=== PATIENT | female | born 1990 | race Two or more races ===

== ENCOUNTER 2024-03-28 08:32 | Emergency (ER) | payer MEDICAID, SELFPAY ==
[2024-03-28 08:32] VITALS: BMI 34.9
--- NOTE | 2024-03-28 08:36 | XR_ITS ---
Examination: Complete OB ultrasound, less than 14 weeks, transabdominal Date and time of exam: March 28, 2024 0921 hours INDICATIONS: Vaginal bleeding beginning 3 days ago Technique: Obstetrical ultrasound images less than 14 weeks performed via transabdominal imaging Findings: Uterus 12.5 x 7.5 x 7.2 cm Intrauterine gestational sac 2.2 cm corresponds to 7 weeks 1 day gestational age No pole No cardiac activity Right ovary 3.5 x 1.8 x 2.3 cm arterial flow Left ovary 2.6 x 0.9 x 2.5 cm arterial flow IMPRESSION: Empty intrauterine gestational sac corresponding to 7 weeks 1 day gestational age No pole, no cardiac activity Recommend short-term follow-up transvaginal pelvic sonography to confirm embryonic demise
[2024-03-28 08:41] VITALS: BP 115/77; PULSE 91; RESP 18; TEMP 36.8; O2SAT 98
[2024-03-28 09:06] LABS: Basophils % (Auto) 1 % (0-2.5); Eosinophils # (Auto) 0.2 Thou/mm3 (0.0-0.5); Eosinophils % (Auto) 3 % (0-10); Hematocrit 38.4 % (36.0-46.0); Hemoglobin 12.6 g/dL (12.0-16.0); Immature Granulocytes % (Auto) 0 % (0-0); Immature Granulocytes Auto 0.01 Thou/mm3 (0.00-0.00); Lymphocytes % (Auto) 31 % (10-50); Mean Corpuscular HGB Conc 32.8 g/dl (31.0-37.0); Mean Corpuscular Hemoglobin 28.3 pg (25.0-35.0); Mean Corpuscular Volume 86 fL (80-100); Monocytes # (Auto) 0.4 Thou/mm3 (0.0-0.8); Monocytes % (Auto) 7 % (0-12); Neutrophils # (Auto) 3.9 Thou/mm3 (1.8-7.7); Neutrophils % (Auto) 59 % (37-80); Nucleated Red Blood Cell % 0 /100 WBC (0); Platelet Count 232 Thou/mm3 (140-440); RDW Standard Deviation 39.9 fL (36.4-46.3); Red Blood Count 4.45 Miln/mm3 (4.00-5.20); White Blood Count 6.6 Thou/mm3 (3.6-11.0)
[2024-03-28 09:27] LABS: Alanine Aminotransferase 10 U/L (10-49); Albumin, Serum 4.7 gm/dL (3.5-5.0); Albumin/Globulin Ratio 1.6 (1.2-2.2); Alkaline Phosphatase 86 U/L (46-116); Anion Gap 7 (7-16); Aspartate Amino Transferase 16 U/L (0-34); BUN/Creatinine Ratio 17 Ratio (12-20); Bilirubin,Total 0.6 mg/dL (0.3-1.2); Blood Urea Nitrogen 10 mg/dL (9-23); Calcium 9.9 mg/dL (8.3-10.6); Calcium (Corrected) 9.9 mg/dL (8.5-10.1); Carbon Dioxide 23.7 mMol/L (20.0-31.0); Chloride 107 mMol/L (98-107); Creatinine (Component) 0.6 mg/dL (0.6-1.3); Estimated Creatinine Clearance 132.3 mL/min (>60); Globulin 2.9 gm/dL (2.3-3.5); Glucose 133 mg/dL (74-106); Osmolality,Calculated 276 (275-295); Potassium 3.9 mMol/L (3.4-5.1); Sodium 138 mMol/L (136-145); Total Protein 7.6 gm/dL (5.7-8.2); eGFR > 60 See Note
[2024-03-28 10:02] LABS: Beta HCG,Quantitative 14988 mIU/mL (<5.0)
[2024-03-28 11:02] VITALS: BP 116/73; PULSE 71; RESP 18; TEMP 36.7; O2SAT 99
--- NOTE | 2024-03-28 11:11 | PD.EDVAGBL ---
ED OB Contraction Preg RMI/HPI General Chief complaint: Vaginal Bleeding Stated complaint: 10wks preg and vag bleeding Time Seen by Provider: 03/28/24 08:35 Arrival date/time: 03/28/24 08:32 33-year-old female presents to the emergency department today stating that she is 10 weeks having vaginal bleeding patient reports that she is here just to make sure everything is okay. Patient reports no chest pain or shortness of breath no abdominal pain no fever no dysuria Limitations: no limitations Related Data Previous Rx's ?Medication ?Instructions ?Recorded labetalol 200 mg tablet 400 mg (2 x 200 mg) PO TID 30 days 11/13/22 #180 tabs Allergies Allergy/AdvReac Type Severity Reaction Status Date / Time No Known Allergies Allergy Verified 03/28/24 08:37 Review of Systems Review of Systems Systems Reviewed: All systems reviewed, normal except as documented Constitutional Constitutional: Reports system reviewed and no additional complaints, except as documented, Denies fever(s) and Denies headache(s) Eyes Eyes: Reports system reviewed and no additional complaints, except as documented and Denies blurry vision ENT Ears, Nose, Mouth, and Throat: Reports system reviewed and no additional complaints, except as documented, Denies headache(s), Denies nasal congestion and Denies nasal discharge Cardiovascular Cardiovascular: Reports system reviewed and no additional complaints, except as documented, Denies chest pain and Denies dyspnea Respiratory Respiratory: Reports system reviewed and no additional complaints, except as documented, Denies chest congestion, Denies cough and Denies dyspnea Gastrointestinal Gastrointestinal: Reports system reviewed and no additional complaints, except as documented and Denies abdominal pain Genitourinary Genitourinary: Reports system reviewed and no additional complaints, except as documented and Reports abnormal vaginal bleeding Integumentary/Breasts Skin/Breast: Reports system reviewed and no additional complaints, except as documented and Denies rash Neurologic Neurologic: Reports system reviewed and no additional complaints, except as documented, Reports as per HPI and Denies headache(s) Past Medical History Past Medical History NEUROLOGIC: Negative Neurological Disorders or Seizures CARDIAC: Negative Cardiac Disorders or Congestive Heart Failure RESPIRATORY: Positive Tuberculosis (PULMONARY TB CXR NEGATIVE); Negative Chronic Obstructive Pulmonary Disease (COPD) or Asthma (PER PATIENT) GASTROINTESTINAL: Negative Gastrointestinal Disorders GENITOURINARY: Positive Genitourinary Disorders (GALLSTONES); Negative Renal Disease REPRODUCTIVE: Negative Pelvic Inflammatory Disease MUSCULOSKELETAL: Negative Musculoskeletal Disorders ENDOCRINE: Negative Endocrine Disorders, Diabetes Mellitus Type 1 or Diabetes Mellitus Type 2 HEMATOLOGIC: Negative Blood Disorders or Anemia PSYCHO/SOCIAL: Negative Depression or Anxiety OTHER HISTORY: Negative Hospitalization, Autoimmune Disease, Falls, Blood Transfusions, Blood Transfusion Reaction or Anesthesia Reactions Family History FAMILY HISTORY: Positive Family Cancer (FATHER'S SISTER); Negative Family Psychiatric Problems, Family Respiratory Disorders, Family Cardiac Disorders, Family Gastrointestinal Problems, Family Surgery or Family Anesthesia Reaction Social History SMOKING STATUS: Never smoker SUBSTANCE USE: does not use ED Exam General Limitations: Present no limitations General appearance: Present alert and in no apparent distress Head Head exam: Present atraumatic Eye Eye exam: Present normal appearance, PERRL and EOMI; Absent conjunctival injection ENT ENT exam: Present normal exam, normal oropharynx and mucous membranes moist Neck Neck exam: Present normal inspection, full ROM and trachea midline Chest Chest inspection: Present normal inspection and symmetric chest wall rise Respiratory Respiratory exam: Present normal lung sounds bilaterally; Absent respiratory distress Cardiovascular Cardiovascular exam: Present regular rate, normal rhythm and normal heart sounds Abdominal Exam Abdominal exam: Present soft and normal bowel sounds; Absent distention, tenderness, guarding, rebound or rigidity Extremities Exam Extremities exam: Present normal inspection and full ROM Back Exam Back exam: Present normal inspection and full ROM Neurological Exam Neurological exam: Present alert, oriented X3 and CN II-XII intact Psychiatric Psychiatric exam: Present normal affect and normal mood Skin Skin exam: Present warm, dry, intact and normal color Course Quality Measures none Orders Category Date Time Status US OB <= 14 weeks fetus Stat Exams 03/28/24 08:36 Completed ABO/RH Type Stat Lab 03/28/24 08:46 Completed Beta HCG,Quantitative Stat Lab 03/28/24 08:46 Completed CBC Stat Lab 03/28/24 08:46 Completed Comprehensive Metabolic Panel Stat Lab 03/28/24 08:46 Completed Vital Signs Vital signs: Vital Signs Temperature 98.2 F 03/28/24 08:41 Pulse Rate 91 03/28/24 08:41 Respiratory Rate 18 03/28/24 08:41 Blood Pressure 115/77 03/28/24 08:41 Pulse Oximetry (%) 98 03/28/24 08:41 Oxygen Delivery Method Room Air 03/28/24 08:41 O2 saturation 98% room air within normal limits Vaginal Bleeding MDM Narrative MDM Narrative: 33-year-old female presents to the emergency department today stating that she is 10 weeks having vaginal bleeding patient reports that she is here just to make sure everything is okay. Patient reports no chest pain or shortness of breath no abdominal pain no fever no dysuria On exam patient well-appearing patient does not appear ill or toxic patient does not appear in acute distress Lab work as well as ultrasound obtained Lab work reassuring but unfortunately patient's ultrasound patient measuring 7 weeks and 1 day no cardiac activity I suspect patient is going through a miscarriage at this time Explained to the patient she has to have repeat lab work and ultrasound and further evaluation by [facility] within the next 24 to 48 hours patient states understanding Patient data External records reviewed:: [facility] previous records Clinical information provided by:: patient Social determinants that could affect healthcare access:: none Patient has the following chronic illnesses:: None How is presenting disease/condition affected by chronic disease/condition?: no chronic disease Evaluation data The following diagnostics were reviewed and interpreted by me:: lab results and radiology exam(s) Lab and/or radiology exams considered but not ordered:: Labs radiology obtained Interpretation Summary: Reviewed by me Medications / Prescriptions Medications or Prescriptions considered but not ordered:: Given Medication administrations:: Given Consultations Consultation(s) initiated? (list below): No Diagnosis Vaginal Bleeding Differential Diagnosis: missed and threatened Most likely diagnosis given after review of the tests above:: Threatened Admission Indicated Admission indicated?: not indicated Admission Request Was there a request for admission?: No Disposition Plan Disposition Plan: Discharge Discharge Attestation Discharge Attestation: The patient and all family members were given an opportunity to ask questions and understood the discharge instructions. Discharge instructions specifically effects, indications for sooner follow up or return to the emergency department, and the expected course of current diagnosis. Patient condition: Stable Discharge Plan Plan Patient Disposition: HOME (Self Care) Disposition Comment: Stable Prescriptions/Referrals Prescriptions/Med Rec: No Action labetalol 200 mg tablet 400 mg PO TID 30 Days Qty: 180 2RF Referrals: Shea Ramírez CNM [Primary Care Provider] - In 1 week Problem List Clinical Impression: , threatened Patient/Caregiver Discharge Instructions Education Materials: Understanding Miscarriage ... Additional Instructions: Please follow-up with [facility] within next 2 to 3 days for repeat ultrasound and lab work for worsening symptoms return immediately Print Language: Citizen Of [place] Stand Alone Forms: Julia Award Info., Work/School Release, Patient Portal Info Letter [employer] Supervising Physician PA/[employer] Supervising Physician: Dr. Gomez
== END 2024-03-28 11:22 | disposition home or self-care (01) ==
PROVIDERS: Nurse Practitioner Primary Care; Emergency Provider Emergency Medicine; PCP Advanced Practice Midwife
DX: O20.0 Threatened abortion (principal); Z3A.01 Less than 8 weeks gestation of pregnancy
CPT/HCPCS: 36415; 76801; 80053; 84702; 85025; 86900; 86901; 99284